=== PATIENT | male | born 1965 | race Caucasian/White ===

== ENCOUNTER 2023-06-17 10:14 | Outpatient (CLI) | payer BC, SELFPAY | END 2023-06-17 10:15 | disposition home or self-care (01) | PROVIDERS: Visit Provider Emergency Medicine | DX: Z12.5 Encounter for screening for malignant neoplasm of prostate (principal); I10 Essential (primary) hypertension | CPT/HCPCS: 80053; 84153 ==

== ENCOUNTER 2023-08-19 12:46 | Outpatient (CLI) | payer BC, SELFPAY | END 2023-08-19 12:47 | disposition home or self-care (01) | LOC: LKVREF 12:47 | PROVIDERS: Visit Provider Nurse Practitioner Family | DX: Z13.6 Encounter for screening for cardiovascular disorders (principal) | CPT/HCPCS: 80061 ==